=== PATIENT | male | born 1940 | race Caucasian/White ===

== ENCOUNTER 2021-05-14 10:18 | Inpatient (IN) ==
--- NOTE | 2021-05-13 09:00 | Anesthesiology Consultation ---
Date of Service May 13, 2021 Assessment & Plan (1) Encounter for pre-operative examination: - COVID screening: Per assessment on 05/13: No known COVID-19 positive contacts or current COVID-19 related symptoms. Travel screen negative. Surgeon arranging p reop COVID testing. Awaiting results. - Check BSG AM DOS - Cardiology office visit (05/09/21): "Please continue cardiac medications perioperatively. Given his history of CAD, would ideally recommend continuing aspirin perioperatievly, but will leave to your discretion. He does not appear to be on Plavix at this time, though he should have restarted that when he stopped Xarelto. Plavix should ideally be started after his surgery when deemed safe by his surgeon, ok to stay off of it until after he has his surgery." - Preop testing: No preop labs received. If not received prior, will order for AM DOS. Chart Review Chart Review: Acceptable Risk for Surgery (pending preop testing) and Patient NOT seen in Pre Admission Testing History Surgery Operation Date: 05/14/21 09:55 Proposed Procedures p L3-S1 Decompression Fusion Spinal Cord Monitoring - Beka Melgar, Height/Weight Height: 5 ft 8 in Weight: 63.503 kg Allergies Allergy/AdvReac Type Severity Reaction Status Date / Time Sulfa (Sulfonamide Allergy Intermediate Shakiness Verified 05/10/21 14:13 Antibiotics) Medications Home Medications Medication Instructions Recorded Confirmed Last Taken aspirin 81 mg tablet,delayed 81 mg PO QAM 05/10/21 05/10/21 Unknown release atorvastatin 40 mg tablet (Lipitor) 40 mg PO PM 05/10/21 05/10/21 Unknown empagliflozin 10 mg tablet 10 mg PO QAM 05/10/21 05/10/21 Unknown (Jardiance) ferrous sulfate 325 mg (65 mg 325 mg PO TID 05/10/21 05/10/21 Unknown iron) tablet (iron) hydrochlorothiazide 25 mg tablet 25 mg PO PM 05/10/21 05/10/21 Unknown insulin glargine 100 unit/mL (3 30 unit SUBCUT QAM 05/10/21 05/10/21 Unknown mL) subcutaneous pen (Lantus Solostar U-100 Insulin) levothyroxine 75 mcg tablet 75 mcg PO QAM 05/10/21 05/10/21 Unknown (Synthroid) lisinopril 40 mg tablet 40 mg PO QAM 05/10/21 05/10/21 Unknown lorazepam 1 mg tablet (Ativan) 1 mg PO QAM 05/10/21 05/10/21 Unknown melatonin 5 mg capsule 5 mg PO PM 05/10/21 05/10/21 Unknown metformin 500 mg tablet 250 mg PO PM 05/10/21 05/10/21 Unknown metformin 500 mg tablet 500 mg PO QAM 05/10/21 05/10/21 Unknown metoprolol succinate 25 mg 25 mg PO PM 05/10/21 05/10/21 Unknown tablet,extended release 24 hr (Toprol XL) tamsulosin 0.4 mg capsule (Flomax) 0.4 mg PO PM 05/10/21 05/10/21 Unknown Past Medical History Medical History Arthritis BPH (benign prostatic hyperplasia) CAD (coronary artery disease) CABG x2 (2008) Diabetes mellitus, type 2 Hyperlipidemia Hypertension Hypothyroidism Neuropathy feet Spinal stenosis Past Surgical History Surgical History History of cataract surgery bilat History of tooth extraction Hx of CABG 2019 > double bypass > [place] Hx of kyphoplasty L4 and L5 Hx of toe surgery bilat big toes Social History Smoking Status: Never smoker Do You Dip or Chew Tobacco: No Hx Alcohol Use: No Hx Substance Use: No substance use type: does not use Testing Electrocardiogram Date: 05/09/21 SB at 55bpm. First degree AVB. RBBB/LAFB. Recent echo 05/07/21. Echocardiogram Date: 05/07/21 EF 55%. Apical myocardium HK. No significant valvular disease. Stress Test Date: 05/13/18 Type: nuclear Myocardial perfusion imaging is abnormal. Reversible ischemia anterior segment left ventricule. Large area of scarring in the apical and inferior segments. EF 42%. Wall motion with apical and septal HK. Patient had subsequent cardiac cath and CABG x2. Cardiac Catheterization Date: 05/24/18 LAD mid 99%. Posterior descending artery proximal 80% Subsequent CABG x2.
[2021-05-14] MEDS: LACTATED RINGER'S 1,000 ML IV SCH ×2 (11:00→18:01)
[2021-05-14 11:06] LABS: Basophils # (auto) 0.02 K/uL (0-0.2); Basophils % (auto) 0.4 %; Eosinophils # (auto) 0.05 K/uL (0-0.5); Eosinophils % (auto) 0.9 %; Hemoglobin 12.2 g/dL (14.0-18.0); Lymphocytes # (auto) 0.95 K/uL (1.2-3.4); Lymphocytes % (auto) 16.7 %; Mean Corpuscular Hemoglobin 33.4 pg (25-34); Mean Corpuscular Hgb Conc 33.9 g/dL (32-36); Mean Corpuscular Volume 98.6 fL (80-100); Mean Platelet Volume 10.7 fL (7.4-10.4); Monocytes # (auto) 1.16 K/uL (0.11-0.59); Monocytes % (auto) 20.4 %; Neutrophils # (auto) 3.52 K/uL (1.4-6.5); Neutrophils % (auto) 61.6 %; Platelet Count 167 K/uL (130-400); Red Blood Count 3.65 M/uL (4.7-6.1)
[2021-05-14] MEDS ORDERED: ROCURONIUM BROMIDE 10 MG/ML 5 ML VIAL IV ONE (11:10)
[2021-05-14] MEDS ORDERED: fentaNYL citrate 100 MCG/2 ML VIAL ONE ×2 (11:10→16:49)
[2021-05-14] MEDS ORDERED: ONDANSETRON INJ 2 MG/ML 2 ML VIAL ONE ×2 (11:10→14:48)
[2021-05-14] MEDS ORDERED: DEXAMETHASONE SOD INJ 4 MG/ML VIAL ONE (11:10)
[2021-05-14] MEDS ORDERED: PROPOFOL IV EMULSION 10 MG/ML 20 ML VIAL IV ONE (11:10)
[2021-05-14 11:25] LABS: BUN Creatinine Ratio 26.6 (10-20); Calcium 9.6 mg/dl (8.5-10.1); Creatinine Clr Calc Pharmacy 32.5 ml/min; Est GFR (African American) 46.8 ml/min; Est GFR (Non-African American) 40.4 ml/min; Potassium 3.8 mmol/L (3.5-5.1)
[2021-05-14] MEDS ORDERED: ONDANSETRON INJ 2 MG/ML 2 ML VIAL IV PRN ×2 (12:17→17:54)
[2021-05-14] MEDS ORDERED: ePHEDrine sulfate 50 MG/ML AMP IV PRN (12:17)
[2021-05-14] MEDS ORDERED: fentaNYL citrate 100 MCG/2 ML VIAL IV PRN (12:17)
[2021-05-14] MEDS ORDERED: HYDROmorphone INJ 1 MG/ML SYRINGE IV PRN ×2 (12:17→17:54)
[2021-05-14] MEDS ORDERED: ATROPINE SULFATE 0.1 MG/ML 10ML SYR IV PRN (12:17)
--- NOTE | 2021-05-14 13:53 | History & Physical Bridge Note ---
Date of Service May 14, 2021 History & Physical Bridge Note I have examined the patient, reviewed the History & Physical and in the interval since the performance of the History & Physical I have noted the following changes of clinical significance: no changes noted
--- NOTE | 2021-05-14 13:54 | History & Physical Report ---
Date of Service May 14, 2021 Assessment & Plan (1) Neurogenic claudication due to lumbar spinal stenosis: Plan: L3-S1 decompression fusion History of Present Illness Chief Complaint: Back and bilateral leg pain Primary Care Provider: NO PCP This is a 50-year-old male who presents with chronic persistent back and leg pain. Failing course of nonoperative care is here for surgical invention. Allergies Allergy/AdvReac Type Severity Reaction Status Date / Time Sulfa (Sulfonamide Allergy Intermediate Shakiness Verified 05/14/21 10:57 Antibiotics) Home Medications Medication Instructions Recorded Confirmed Type aspirin 81 mg tablet,delayed 81 mg PO QAM 05/10/21 05/14/21 History release atorvastatin 40 mg tablet (Lipitor) 40 mg PO PM 05/10/21 05/14/21 History empagliflozin 10 mg tablet 10 mg PO QAM 05/10/21 05/14/21 History (Jardiance) ferrous sulfate 325 mg (65 mg 325 mg PO TID 05/10/21 05/14/21 History iron) tablet (iron) hydrochlorothiazide 25 mg tablet 25 mg PO PM 05/10/21 05/14/21 History insulin glargine 100 unit/mL (3 30 unit SUBCUT QAM 05/10/21 05/14/21 History mL) subcutaneous pen (Lantus Solostar U-100 Insulin) levothyroxine 75 mcg tablet 75 mcg PO QAM 05/10/21 05/14/21 History (Synthroid) lisinopril 40 mg tablet 40 mg PO QAM 05/10/21 05/14/21 History lorazepam 1 mg tablet (Ativan) 1 mg PO QAM 05/10/21 05/14/21 History melatonin 5 mg capsule 5 mg PO PM 05/10/21 05/14/21 History metformin 500 mg tablet 250 mg PO PM 05/10/21 05/14/21 History metformin 500 mg tablet 500 mg PO QAM 05/10/21 05/14/21 History metoprolol succinate 25 mg 25 mg PO PM 05/10/21 05/14/21 History tablet,extended release 24 hr (Toprol XL) tamsulosin 0.4 mg capsule (Flomax) 0.4 mg PO PM 05/10/21 05/14/21 History Past Med/Surg History Medical History Arthritis BPH (benign prostatic hyperplasia) CAD (coronary artery disease) CABG x2 (2009) Diabetes mellitus, type 2 Hyperlipidemia Hypertension Hypothyroidism Neuropathy feet Spinal stenosis Surgical History History of cataract surgery bilat History of tooth extraction Hx of CABG 2019 > double bypass > [place] Hx of kyphoplasty L4 and L5 Hx of toe surgery bilat big toes Social History Smoking Status: Never smoker Second Hand Exposure: No; Do You Dip or Chew Tobacco: No; Tobacco Cessation Education Requested by Patient: No Hx Alcohol Use: No Hx Substance Use: No Preferred Language: Syriac Communication Ability: Effective Ammunition Officer Required: No Beliefs That Will Affect Care: None Current Living Situation: Alone Other Information That Helps Us Care for You: No Feels Safe at Home: Yes Safety Concerns: Feels Safe At This Time Assistive Devices: Denture - Upper, Denture - Lower, Glasses, Hearing Aid - Bilateral and Walker Physical Exam Physical Exam: Patient is alert and oriented Heart regular rhythm Lungs clear Results & Data ([facility]) Vital Signs (Past 12 Hours) Vital Signs Temp Pulse Resp BP Pulse Ox 05/14/21 10:49 36.7 C 60 18 168/75 H 98
[2021-05-14] MEDS ORDERED: SUGAMMADEX SODIUM 200 MG/2 ML VIAL IV ONE (13:56)
[2021-05-14] MEDS ORDERED: BUPIVACAINE 0.5 % 5 MG/1 ML MPF 30ML VIAL ONE (13:59)
[2021-05-14] MEDS ORDERED: EPINEPHrine INJ 1 MG/ML AMP ONE (13:59)
[2021-05-14] MEDS ORDERED: ceFAZolin 330 MG/ML 1 GM VIAL ONE (13:59)
[2021-05-14] MEDS ORDERED: ceFAZolin 2,000 MG/15 ML IV PUSH IV ONE (14:04)
[2021-05-14] MEDS ORDERED: ceFAZolin 2000MG 2,000 MG/15 ML SYR IV ONE (14:05)
[2021-05-14] MEDS ORDERED: PHENYLEPHRINE HCL 10 MG/ML VIAL ONE (14:37)
[2021-05-14] MEDS ORDERED: ePHEDrine sulfate 50 MG/ML AMP ONE (14:37)
[2021-05-14] MEDS ORDERED: FLOSEAL HEMOSTATIC MATRIX 10ML TOP ONE (14:54)
--- NOTE | 2021-05-14 16:57 | Operative Report ---
Post Operative Report Pre & Post Diagnosis Operation Date: 05/14/21 12:50 Pre-Op Diagnosis: Spinal Stenosis of Lumbar Region Post-Op Diagnosis: Spinal Stenosis of Lumbar Region I identified the patient and participated in the time-out.: Yes Procedure Operation Date: 05/14/21 12:50 Actual Procedures #1 lumbar decompression with bilateral medial facetectomies and foraminotomies L3-L4, L4-5 and L5-S1. #2 posterior spinal fusion L3-S1. #3 placement posterior instrumentation L3-S1. #4 interbody fusion L5-S1. #5 placement of Spira 14 x 26 mm cage at L5-S1. #6 placement locally harvested morselized autograft in the posterior gutters. #7 placement of infuse collagen sponge, master graft in the posterior lateral gutters and I factor in the body space. Surgeon Beka Melgar, Client Development Consultant None Estimated Blood Loss 200 Findings Consistent with Post-Op Diagnosis Specimens None Indications This is an 80-year-old male who presents with significant lumbar spinal stenosis and neurogenic claudication after failing course of nonoperative care is here for surgical intervention. Description of Procedure Patient was met with identified informed consent obtained. Patient was then taken to the operative suite underwent ablation placed in a prone position the Ramírez table atop the Pedro frame. All bony prominences well-padded eyes inspected to ensure no external pressure placed upon. This point the lumbar spine was prepped and draped in a sterile fashion. Sharp dissection with the assistance pericardial form down to and exposing the lamina and transverse processes of L3-L4-L5 and sacral ala bilaterally. From caudal to cephalad fashion complete laminectomy of L5 L4 and L3 was performed including bilateral medial facetectomies and foraminotomies addressing severe spinal stenosis. Pedicle screws then placed in L3 L5 and S1 levels bilaterally with assistance of fluoroscopy purposes javier placed. By way of a transforaminal portion right complete discectomy of L5-S1 was performed endplates curetted to subcortical bone bone and a 14 x 26 mm Spira cage filled with I factor tapped in position. Rods were then compressed locked in final position bilaterally. The transverse processes of L3-L4-L5 and sacral ala burred to subcortical being bone. Infuse collagen sponge master graft local autograft was placed in the posterior gutters. 15 round ELISABET drain inserted. The incision was then closed with 1 Vicryl fascia 2-0 Vicryl subcutaneously and 4 Monocryl for final skin closure. Steri-Strip Steri-Strips placed. Patient will continue PACU stable condition. Please note spinal cord monitoring was last at the procedure no changes noted. I attest to the content of the Intraoperative Record and any orders documented therein. Any exceptions are noted below.
--- NOTE | 2021-05-14 17:11 | Fluoroscopy Report ---
FL lumbar spine 2-3V CLINICAL HISTORY: L3-S1 DECOMPRESSION AN FUSION TECHNIQUE: 3 views were obtained with the C-arm in the OR with the above procedure. Total fluoroscopy time was 3.3 seconds. Total skin dose was 8.44 mGy. Comparison: None available at the time of this dictation. FINDINGS/IMPRESSION: Intraoperative images were obtained of L3-S1 decompression and fusion. Please correlate with intraoperative fluoroscopy and operative report. ACT 112: Negative or not required by law. Electronically signed by: Aguilar Cotton M.D. 05/14/2021 5:09 PM
--- NOTE | 2021-05-14 17:53 | Anesthesiology Progress Note ---
Date of Service May 14, 2021 Anesthesia Post Procedure Vital Signs Vital Signs: Temp Pulse Pulse Resp BP Pulse Ox 05/14/21 17:40 36.3 C L 63 12 128/56 L 98 05/14/21 17:30 36.3 C L 69 16 118/67 97 05/14/21 17:20 69 12 121/63 98 05/14/21 17:10 77 19 101/55 L 97 05/14/21 17:03 36 C L 75 4 L 121/64 100 05/14/21 10:49 36.7 C 60 18 168/75 H 98 Transfer of Care Handoff Completed per policy Notes Mental Status: alert / awake / arousable and participated in evaluation Patient Amnestic to Procedure: Yes Nausea / Vomiting: adequately controlled Pain: adequately controlled Airway Patency, RR, SpO2: stable & adequate BP & HR: stable & adequate Hydration State: stable & adequate Anesthetic Complications: no major complications apparent
[2021-05-14] MEDS ORDERED: LORazepam 0.5 MG TAB PO PRN (17:54)
[2021-05-14] MEDS ORDERED: hydrOXYzine HCl 25 MG TAB PO PRN (17:54)
[2021-05-14] MEDS ORDERED: DO NOT ADMINISTER PNEUMOCOCCAL VACCINE PRN (17:54)
[2021-05-14] MEDS ORDERED: traMADol HCL 50 MG TABLET PO PRN (17:54)
[2021-05-14] MEDS ORDERED: ACETAMINOPHEN 1,000 MG/100 ML VIAL IV PRN (17:54)
[2021-05-14] MEDS ORDERED: ACETAMINOPHEN 500 MG TAB PO PRN (17:54)
[2021-05-14] MEDS ORDERED: diphenhydrAMINE Capsule 25 MG CAP PO PRN (17:54)
[2021-05-14] MEDS ORDERED: FAMOTIDINE 20 MG TAB PO PRN (17:54)
[2021-05-14] MEDS ORDERED: oxyCODONE HCL IR 5 MG TAB (IMMEDIATE RELEASE) PO PRN (17:54)
[2021-05-14] MEDS ORDERED: PROMETHAZINE HCL 12.5 MG in SODIUM CHLORIDE 0.9% 50 ML IV PRN (17:54)
[2021-05-14] MEDS ORDERED: METOCLOPRAMIDE HCL INJ 5 MG/ML 2 ML VIAL IV PRN (17:54)
[2021-05-14] MEDS ORDERED: LORazepam 2 MG/1 ML VIAL IV PRN (17:54)
[2021-05-14] MEDS ORDERED: ONDANSETRON 4 MG OD TAB PO PRN (17:54)
[2021-05-14] MEDS ORDERED: NALOXONE HCL 0.4 MG/1 ML VIAL/CARP IV PRN (17:54)
[2021-05-14] MEDS ORDERED: HYDROmorphone INJ 0.5 MG/0.5 ML SYR IV PRN (17:54)
[2021-05-14] MEDS ORDERED: bisacodyL 10 MG SUPP PR PRN (17:54)
[2021-05-14] MEDS ORDERED: SOD PHOSPHATE/SOD BIPHOSPHATE ENEMA 132 ML BTL PR PRN (17:54)
[2021-05-14] MEDS ORDERED: DO NOT ADMINISTER FLU VACCINE PRN (17:54)
[2021-05-14] MEDS ORDERED: ALUMINUM/MAGNESIUM SUSP 30 ML UDC PO PRN (17:54)
[2021-05-14] MEDS ORDERED: MAGNESIUM HYDROXIDE SUSP 30 ML UDC PO PRN (17:54)
[2021-05-14] MEDS: SODIUM CHLORIDE 0.9% 1000ML 1,000 ML IV SCH (18:05)
[2021-05-14] MEDS ORDERED: PHARMACY GLYCEMIC MGMT CONSULT PRN (20:18)
[2021-05-14] MEDS ORDERED: CARBOHYDRATES FOR HYPOGLYCEMIA PO PRN (20:45)
[2021-05-14] MEDS ORDERED: GLUCOSE 10 TABS/TUBE PO PRN (20:45)
[2021-05-14] MEDS ORDERED: GLUCOSE 40% GEL 15 GM TUBE PO PRN (20:45)
[2021-05-14] MEDS ORDERED: DEXTROSE 50% 50 ML SYRINGE IV PRN (20:45)
[2021-05-14] MEDS ORDERED: GLUCAGON FOR INJ 1 MG VIAL IM PRN (20:45)
[2021-05-14] MEDS ORDERED: hydroCHLOROthiazide 25 MG TAB PO SCH (21:00)
--- NOTE | 2021-05-14 21:13 | Hospitalist Consultation ---
Date of Consultation May 14, 2021 Assessment & Plan (1) Neurogenic claudication due to lumbar spinal stenosis: POD#0 L3-S1 decompression and fusion by Dr. Melgar Activity and wound care orders as per ortho pain control with bowel regimen PT/OT monitor H/H for acute blood loss anemia and transfuse blood products PRN EBL 200 cc (2) Abnormal renal function: Creatinine 1.5 Unknown baseline, however patient reports that his PCP wants him to see a autocutter For now, hold HCTZ and lisinopril pending a.m. labs Daily BMP (3) CAD (coronary artery disease): Appears stable, no reports of chest pain Continue ASA, statin, beta-sandip (4) Diabetes mellitus, type 2: Unknown A1c, will check with a.m. labs Glycemic pharmacy consult (5) Hypertension: BP controlled, holding lisinopril and HCTZ as above Continue metoprolol (6) Ischemic cardiomyopathy: Previous EF 40% however normalized on recent echo on 05/07/2021 to 55% Monitor volume status closely (7) Hypothyroidism: Continue levothyroxine (8) DVT prophylaxis: TEDs/SCDs as per spine Ortho Thank you for this consultation. We will follow the patient with you during their hospital stay. You can reach a member of the [facility] Hospitalist Team 01/09 via the [facility] Hospitalist role in [place] Text. Supervising Physician Co-Signing Physician Notes Care coordinated with CLAUDIA Salmon. Agree with above note. Patient seen and examined. Please refer to her notes for full details. Vital signs reviewed. Physical exam: General exam: Alert and oriented. Not in acute distress. CVS: S1 and S2 heard, regular rate and rhythm, no murmurs. RS: Clear to auscultation, no wheezing or crackles. ABD: Soft, bowel sounds present, nontender, no distention. SPORTS TRAINER: Nonfocal. Musculoskeltal s/p back surgery Dressing and drain intact. EXT: No edema, no erythema. Labs: Reviewed. Assessment and plan: 80 M with hx of CAd, HTN, DM is s/p back surgery. Tolerated procedure fine. NO complaints. Resting comfortably, s/p Back surgery management as per ortho. DM will monitor pharmacy consulted. Hx of HTN will monitor Other diagnosis and plan of care as per .CLAUDIA Salmon. Ronaldo davis MD. History of Present Illness Reason for Consultation: Postop medical management Requesting Physician: Dr. Melgar Attending Physician: Beak Melgar, DO History of Present Illness 80-year-old male with PMH CAD s/p CABG, ischemic cardiomyopathy EF 55%, DM type II, hypothyroidism, HTN, and other problems listed below who is s/p L3-S1 decompression and fusion by Dr. Melgar. Postoperatively, the patient is doing well. He reports his pain is well controlled. He reports chronic tingling to his feet that is unchanged from baseline due to neuropathy. Denies lower extremity weakness. No chest pain or shortness of breath. Denies lightheadedness and dizziness. No abdominal pain or nausea. Molina catheter is in place draining clear yellow urine. Allergies Allergy/AdvReac Type Severity Reaction Status Date / Time Sulfa (Sulfonamide Allergy Intermediate Shakiness Verified 05/14/21 10:57 Antibiotics) Home Medications Medication Instructions Recorded Confirmed Type aspirin 81 mg tablet,delayed 81 mg PO QAM 05/10/21 05/14/21 History release atorvastatin 40 mg tablet (Lipitor) 40 mg PO PM 05/10/21 05/14/21 History empagliflozin 10 mg tablet 10 mg PO QAM 05/10/21 05/14/21 History (Jardiance) ferrous sulfate 325 mg (65 mg 325 mg PO TID 05/10/21 05/14/21 History iron) tablet (iron) hydrochlorothiazide 25 mg tablet 25 mg PO PM 05/10/21 05/14/21 History insulin glargine 100 unit/mL (3 30 unit SUBCUT QA 05/10/21 05/14/21 History mL) subcutaneous pen (Lantus Solostar U-100 Insulin) levothyroxine 75 mcg tablet 75 mcg PO QAM 05/10/21 05/14/21 History (Synthroid) lisinopril 40 mg tablet 40 mg PO QAM 05/10/21 05/14/21 History lorazepam 1 mg tablet (Ativan) 1 mg PO QAM 05/10/21 05/14/21 History melatonin 5 mg capsule 5 mg PO PM 05/10/21 05/14/21 History metformin 500 mg tablet 250 mg PO PM 05/10/21 05/14/21 History metformin 500 mg tablet 500 mg PO QAM 05/10/21 05/14/21 History metoprolol succinate 25 mg 25 mg PO PM 05/10/21 05/14/21 History tablet,extended release 24 hr (Toprol XL) tamsulosin 0.4 mg capsule (Flomax) 0.4 mg PO PM 05/10/21 05/14/21 History Patient History Medical History Arthritis BPH (benign prostatic hyperplasia) CAD (coronary artery disease) CABG x2 (2009) Diabetes mellitus, type 2 Hyperlipidemia Hypertension Hypothyroidism Ischemic cardiomyopathy Neuropathy feet Spinal stenosis Surgical History History of cataract surgery bilat History of tooth extraction Hx of CABG 2019 > double bypass > [place] Hx of kyphoplasty L4 and L5 Hx of toe surgery bilat big toes Family History Other Family history non-contributory Social History Smoking Status: Never smoker Second Hand Exposure: No; Do You Dip or Chew Tobacco: No; Tobacco Cessation Education Requested by Patient: No Hx Alcohol Use: No Hx Substance Use: No Preferred Language: Moldovan Communication Ability: Effective Architectural Manager Required: No Beliefs That Will Affect Care: None Current Living Situation: Alone Other Information That Helps Us Care for You: No Feels Safe at Home: Yes Safety Concerns: Feels Safe At This Time Assistive Devices: Denture - Upper, Denture - Lower, Glasses, Hearing Aid - Bilateral and Walker Review of Systems Review of Systems: ROS per HPI, all other systems reviewed and negative Physical Exam Constitutional: WD/WN, vitals as above Eyes: PERRL, conjunctivae normal, anicteric sclerae ENMT: external ear and nose normal, oropharynx normal Respiratory: normal respiratory effort, lungs clear to auscultation Cardiovascular: Rate/Rhythm: regular rate and regular rhythm Heart Sounds: + murmur (Grade 3/6, systolic) Extremities: no edema Gastrointestinal (Abdomen): normal bowel sounds, soft, nontender, no hepatosplenomegaly Musculoskeletal: no cyanosis or clubbing, extremities motor strength 5/5 S/p back surgery, pedal pushes and pulls strong bilaterally, drain in place draining bloody drainage Skin: no rashes, warm and dry Neurologic: PERRL, EOMI, accommodation nl, no face palsy, no dysarthria Psychiatric: A+Ox3, euthymic affect Results & Data Results & Data ([facility]) Vital Signs (Past 12 Hours) Vital Signs Temp Pulse Pulse Pulse Resp BP Pulse Ox 05/14/21 20:50 36.7 C 73 16 142/65 H 96 05/14/21 19:50 36.3 C L 69 18 132/64 97 05/14/21 18:50 36.3 C L 75 16 132/68 93 05/14/21 18:20 36.4 C L 65 16 133/59 L 97 05/14/21 17:50 36.4 C L 68 16 122/60 97 05/14/21 17:40 36.3 C L 63 12 128/56 L 98 05/14/21 17:30 36.3 C L 69 16 118/67 97 05/14/21 17:20 69 12 121/63 98 05/14/21 17:10 77 19 101/55 L 97 05/14/21 17:03 36 C L 75 4 L 121/64 100 05/14/21 10:49 36.7 C 60 18 168/75 H 98 Laboratory Results Short CBC 05/14/21 Range/Units 10:43 WBC 5.70 (4.8-10.8) K/uL Hgb 12.2 L (14.0-18.0) g/dL Hct 36.0 L (42-52) % Plt Count 167 (130-400) K/uL BMP 05/14/21 10:43 Sodium 141 Potassium 3.8 Chloride 105 Carbon Dioxide 28 BUN 42 H Creatinine 1.58 H Glucose 126 H Calcium 9.6
[2021-05-14] MEDS: MELATONIN 3 MG TAB PO SCH (21:27)
[2021-05-14] MEDS: ATORVASTATIN 40 MG TAB PO SCH (21:27)
[2021-05-14] MEDS: TAMSULOSIN HCL 0.4 MG CAP PO SCH (21:27)
[2021-05-14] MEDS: DOCUSATE SODIUM/SENNA 50/8.6MG TAB PO SCH (21:28)
[2021-05-14] MEDS: METOPROLOL SUCC 25MG EXT REL TAB PO SCH (21:28)
[2021-05-14] MEDS: FERROUS SULFATE 325 MG TAB PO SCH (21:28)
[2021-05-14] MEDS: INSULIN ASPART PER UNIT SC SCH (21:29)
[2021-05-14] MEDS ORDERED: INSULIN GLARGINE SOLOSTAR 100 UNITS/ML 3 ML PEN SC ONE (21:45)
[2021-05-14] MEDS: ceFAZolin 1000MG 1,000 MG/7.5 ML SYR IV SCH (22:28)
[2021-05-15] MEDS: SODIUM CHLORIDE 0.9% 1000ML 1,000 ML IV SCH (03:50)
[2021-05-15] MEDS: LEVOTHYROXINE SODIUM 75 MCG TABLET PO SCH (06:10)
[2021-05-15] MEDS: POLYETHYLENE (MIRALAX) 17 GM PACK PO SCH ×3 (06:11→17:39)
[2021-05-15] MEDS: ceFAZolin 1000MG 1,000 MG/7.5 ML SYR IV SCH (06:12)
[2021-05-15] MEDS ORDERED: Nursing to Pharmacy Communication SCH (06:45)
[2021-05-15 08:15] LABS: Hematocrit (blood only) 25.8 % (42-52); Hemoglobin 8.7 g/dL (14.0-18.0); Mean Corpuscular Hemoglobin 32.8 pg (25-34); Mean Corpuscular Hgb Conc 33.7 g/dL (32-36); Mean Corpuscular Volume 97.4 fL (80-100); Mean Platelet Volume 10.9 fL (7.4-10.4); Platelet Count 173 K/uL (130-400); RDW Standard Deviation 50.2 fL (36.4-46.3); Red Blood Count 2.65 M/uL (4.7-6.1); White Blood Count 10.46 K/uL (4.8-10.8)
[2021-05-15] MEDS: INSULIN ASPART PER UNIT SC SCH ×4 (08:24→21:09)
[2021-05-15] MEDS: ASPIRIN 81 MG ECTAB PO SCH (08:26)
[2021-05-15] MEDS: dexAMETHasone 6 MG in SYRINGE 0 ML IV SCH (08:26)
[2021-05-15] MEDS: INSULIN GLARGINE SOLOSTAR 100 UNITS/ML 3 ML PEN SC SCH (08:27)
[2021-05-15] MEDS: FERROUS SULFATE 325 MG TAB PO SCH ×3 (08:27→21:00)
[2021-05-15 08:40] LABS: Immature Granulocytes # (auto) 0.03 K/uL (0.00-0.02); Immature Granulocytes % (auto) 0.3 %; Lymphocytes # (auto) 0.99 K/uL (1.2-3.4); Lymphocytes % (auto) 9.5 %; Monocytes # (auto) 1.84 K/uL (0.11-0.59); Monocytes % (auto) 17.6 %; Neutrophils % (auto) 72.6 %
[2021-05-15 08:47] LABS: Calcium 8.4 mg/dl (8.5-10.1); Creatinine Clr Calc Pharmacy 25.6 ml/min; Est GFR (African American) 35.2 ml/min; Est GFR (Non-African American) 30.4 ml/min; Potassium 5.4 mmol/L (3.5-5.1)
[2021-05-15] MEDS ORDERED: lisinopril 40 MG TAB PO SCH (09:00)
[2021-05-15 09:34] LABS: Estimated Average Glucose 163 mg/dl; Hemoglobin A1C 7.3 % (4.5-5.6)
--- NOTE | 2021-05-15 13:49 | Orthopedic Progress Note ---
Date of Service May 15, 2021 Assessment & Plan (1) Neurogenic claudication due to lumbar spinal stenosis: Plan: This time continue physical therapy monitor his ELISABET operatively discharge home next few days. Admission and Anticipated Discharge Date Admission Date: May 14, 2021 Subjective Back pain is controlled leg symptoms markedly improved Physical Exam Physical Exam: Patient is in the chair at the bedside. Is comfortable. Is good strength testing. Results & Data ([facility]) Vital Signs (Past 12 Hours) Vital Signs Temp Pulse Resp BP BP Pulse Ox 05/15/21 11:47 36.6 C 63 16 118/63 96 05/15/21 07:43 36.7 C 85 16 102/65 93 05/15/21 03:00 36.6 C 72 16 116/60 95
--- NOTE | 2021-05-15 13:55 | Pharmacy Report ---
Pharmacy Glycemic Short Note 2 - Date of Service May 15, 2021 - Glycemic Short BSG Results (Last 24 hours): 05/14/21 05/14/21 05/15/21 17:04 20:53 07:31 Glucose 257 H POC Glucose 129 H 217 H 05/15/21 05/15/21 08:17 11:56 Glucose POC Glucose 290 H 214 H OUTPATIENT ANTIDIABETIC REGIMEN: * Empagliflozin 10mg daily * Metformin: 500mg qAM, 250mg qPM * Lantus 30 units SQ qAM * HbA1c: 7.3% (05/15/21) ASSESSMENT: * Mr Albarado is an 80yo diabetic male, POD #1 s/p spinal surgery w/ Dr Melgar yesterday. * It appears as though pt received 12mg IV dexamethasone yesterday pre- operatively. This is expected to contribute to significant steroid-induced hyperglycemia. Pt is ordered DXM 6mg IV daily x3 days. * Patient has been hyperglycemic post-op. Suspect that this is due to steroids and also due to a basal insulin deficit. * Pt's SCr increased today (1.58 --> 2.0), so will cautiously attempt to correct hyperglycemia in the setting of changing insulin sensitivity. PLAN FOR INPATIENT GLYCEMIC CONTROL: * Hold outpatient oral diabetes medications * Basal insulin * Lantus 30 units SQ daily * Bolus insulin * NovoLog per scale ACHS or Q6hrs while NPO, plus 0000 and 0400 tonight * Goal Range: Low 110 mg/dL - High 140 mg/dL * Correction Factor: 25 mg/dL/unit * Nutritional / Prandial insulin per carb ratio of 1 unit per 8 grams CHO consumed
--- NOTE | 2021-05-15 14:08 | Hospitalist Progress Note ---
Date of Service May 15, 2021 Assessment & Plan (1) Neurogenic claudication due to lumbar spinal stenosis: (2) Abnormal renal function: (3) CAD (coronary artery disease): (4) Diabetes mellitus, type 2: (5) Hypertension: (6) Ischemic cardiomyopathy: (7) Hypothyroidism: (8) DVT prophylaxis: Plan: Neurogenic Claudication -Management per Orthopedic service GEORGE on likely CKD -unknown CKD stage -Cr 1.5 on admission, 2 today despite holding home lisinopril and HCTZ -will repeat BMP now, check post void bladder scan Q shift -still with rojas after surgery so post renal obstruction unlikely -will place on NSS at 75 cc/hr, repeat BMP tomorrow Acute blood loss anemia -Hb 12--> 8.7 -repeat Hb 8.4. May need blood transfusion tomorrow if Hb drops further Ischemic Cardiomyopathy Chronic systolic CHF -EF 40%--> recovered to 55% on repeat TTE 05/07/2021 -Hypovolemic on exam HTN -hold home HCTZ, lisinopril -BP normotensive off medications BPH -flomax -void trial now. would recommend post void bladder scan Q shift Hyperkalemia -in setting of hyperglycemia and worsening renal failure -will repeat BMP again now, if remains elevated, will give 1 dose kayexlate IDDM with steroid induced hyperglycemia -management per glycemic pharmacist DVT PPx -per primary, but recommend SCDs in setting of acute blood loss anemia. Admission and Anticipated Discharge Date Admission Date: May 14, 2021 Subjective Reports poor sleep Poor oral intake Still with drain in back Denies light headedness, dizziness, chest pain or shortness of breath Physical Exam Physical Exam: Appears stated age, no acute distress but somewhat pale ENMT: Mucous membrane dry Respiratory: Breathing comfortably on room air, no wheezing/rhonchi/rales Cardiovascular: regular rate and rhythm, no murmurs/rubs/gallops Gastrointestinal (Abdomen): soft Musculoskeletal: thin Skin: back drain with serosanguinous fluid, dressing at surgical site is clean/dry/intact Results & Data Results & Data ([facility]) Vital Signs (Past 12 Hours) Vital Signs Temp Pulse Resp BP BP Pulse Ox 05/15/21 11:47 36.6 C 63 16 118/63 96 05/15/21 07:43 36.7 C 85 16 102/65 93 05/15/21 03:00 36.6 C 72 16 116/60 95 Laboratory Results Short CBC 05/15/21 05/15/21 Range/Units 07:31 14:13 WBC 10.46 12.52 H (4.8-10.8) K/uL Hgb 8.7 L D 8.4 L (14.0-18.0) g/dL Hct 25.8 L 24.6 L (42-52) % Plt Count 173 149 (130-400) K/uL BMP 05/15/21 07:31 Sodium 133 L Potassium 5.4 H D Chloride 101 Carbon Dioxide 24 BUN 54 H Creatinine 2.00 H D Glucose 257 H Calcium 8.4 L Medications Administered Current Inpatient Medications Acetaminophen (Acetaminophen 500 Mg Tab) 1,000 mg PO Q8H PRN PRN Reason: MILD Pain Scale 1,2,3 & Pre PT Stop: 06/13/21 17:53 Last Admin: 05/15/21 06:20 Dose: 1,000 mg Documented by: Al Hydrox/Mg Hydrox/Simethicone (Aluminum/Magnesium Susp 30 Ml Udc) 30 ml PO Q6H PRN PRN Reason: Dyspepsia Stop: 06/13/21 17:53 Last Admin: 05/15/21 06:20 Dose: 30 ml Documented by: Aspirin (Aspirin 81 Mg Ectab) 81 mg PO QAM ANTHONY Stop: 06/14/21 08:59 Last Admin: 05/15/21 08:26 Dose: 81 mg Documented by: Atorvastatin Calcium (Atorvastatin 40 Mg Tab) 40 mg PO PM ANTHONY Stop: 06/13/21 20:59 Last Admin: 05/14/21 21:27 Dose: 40 mg Documented by: Bisacodyl (Bisacodyl 10 Mg Supp) 10 mg LA DAILY PRN PRN Reason: Constipation Stop: 06/13/21 17:53 Dextrose (Dextrose 50% 50 Ml Syringe) 25 - 50 ml IV UD PRN; Protocol PRN Reason: Hypoglycemia Protocol Stop: 06/13/21 20:44 Diphenhydramine HCl (Diphenhydramine Capsule 25 Mg Cap) 25 mg PO Q6H PRN PRN Reason: Allergic Rhinitis/Insomnia Stop: 06/13/21 17:53 Famotidine (Famotidine 20 Mg Tab) 20 mg PO Q12H PRN PRN Reason: Dyspepsia Stop: 06/13/21 17:53 Ferrous Sulfate (Ferrous Sulfate 325 Mg Tab) 325 mg PO TID ANTHONY Stop: 06/13/21 20:59 Last Admin: 05/15/21 14:48 Dose: 325 mg Documented by: Glucagon (Glucagon For Inj 1 Mg Vial) 1 mg IM UD PRN; Protocol PRN Reason: Hypoglycemia Protocol Stop: 06/13/21 20:44 Glucose (Glucose 40% Gel 15 Gm Tube) 15 - 30 gm PO UD PRN; Protocol PRN Reason: Hypoglycemia Protocol Stop: 06/13/21 20:44 Glucose (Glucose 10 Tabs/Tube) 4 - 8 tabs PO UD PRN; Protocol PRN Reason: Hypoglycemia Protocol Stop: 06/13/21 20:44 Hydrochlorothiazide (Hydrochlorothiazide 25 Mg Tab) 25 mg PO PM [facility] Stop: 06/13/21 20:59 Hydromorphone HCl (Hydromorphone Inj 0.5 Mg/0.5 Ml Syr) 0.5 mg IV Q3H PRN PRN Reason: MODERATE Pain (Scale 4,5,6) & Pre PT Stop: 05/28/21 17:53 Hydromorphone HCl (Hydromorphone Inj 1 Mg/Ml Syringe) 1 mg IV Q3H PRN PRN Reason: SEVERE Pain (Scale 7,8,9,10) Stop: 05/28/21 17:53 Hydroxyzine HCl (Hydroxyzine Hcl 25 Mg Tab) 25 mg PO Q8H PRN PRN Reason: Anxiety Stop: 06/13/21 17:53 Promethazine HCl 12.5 mg/ (Sodium Chloride) 50.5 mls @ 202 mls/hr IV Q6H PRN PRN Reason: Nausea &/or Vomiting Stop: 06/13/21 17:53 Acetaminophen (Ofirmev) 1,000 mg in 100 mls @ 400 mls/hr IV Q8H PRN PRN Reason: Pain Rating 1-3 & Pre PT Stop: 05/17/21 17:53 Dexamethasone 6 mg/ Syringe 1.5 mls @ 1 mls/min IV DAILY [facility] Stop: 05/17/21 09:02 Last Admin: 05/15/21 08:26 Dose: 1 mls/min Documented by: Influenza Virus Vaccine Quadrival (Do Not Administer Flu Vaccine) 1 ea N/A PRN PRN PRN Reason: Notification Stop: 06/13/21 17:53 Insulin Aspart (Insulin Aspart Per Unit) 0 units SC ACHS [facility] Stop: 06/13/21 20:59 Last Admin: 05/15/21 12:35 Dose: 7 units Documented by: Insulin Aspart (Insulin Aspart Per Unit) 0 units SC 0000,[id number] [facility] Stop: 05/16/21 04:01 Insulin Glargine (Insulin Glargine Solostar 100 Units/Ml 3 Ml Pen) 30 units SC [facility] Stop: 06/14/21 08:59 Last Admin: 05/15/21 08:27 Dose: 30 units Documented by: Levothyroxine Sodium (Levothyroxine Sodium 75 Mcg Tablet) 75 mcg PO DAILYBB [facility] Stop: 06/14/21 06:29 Last Admin: 05/15/21 06:10 Dose: 75 mcg Documented by: Lisinopril (L[facility]op[facility] 40 Mg Tab) [facility] Stop: 06/14/21 08:59 Lorazepam (Lorazepam 0.5 Mg Tab) 0.5 mg PO Q8H PRN PRN Reason: Sedation/Anxiety Stop: 06/13/21 17:53 Lorazepam (Lorazepam 2 Mg/1 Ml Vial) 0.5 mg IV Q8H PRN PRN Reason: Sedation/Anxiety Stop: 06/13/21 17:53 Magnesium Hydroxide (Magnesium Hydroxide Susp 30 Ml Udc) 30 ml PO Q24H PRN PRN Reason: Constipation Stop: 06/13/21 17:53 Melatonin (Melatonin 3 Mg Tab) 4.5 mg PO PM [facility] Stop: 06/13/21 20:59 Last Admin: 05/14/21 21:27 Dose: 4.5 mg Documented by: Metoclopramide HCl (Metoclopramide Hcl Inj 5 Mg/Ml 2 Ml Vial) 10 mg IV Q6H PRN PRN Reason: Nausea &/or Vomiting Stop: 06/13/21 17:53 Metoprolol Succinate (Metoprolol Succ 25mg Ext Rel Tab) 25 mg PO PM [facility] Stop: 06/13/21 20:59 Last Admin: 05/14/21 21:28 Dose: 25 mg Documented by: Miscellaneous (Carbohydrates For Hypoglycemia ) 15 - 30 gm PO UD PRN PRN Reason: Hypoglycemia Treatment Stop: 06/13/21 20:44 Miscellaneous Information (Pharmacy Glycemic Mgmt Consult) 1 ea N/A UD PRN PRN Reason: Consult Stop: 06/13/21 20:17 Naloxone HCl (Naloxone Hcl 0.4 Mg/1 Ml Vial/Carp) 0.1 mg IV Q5M PRN PRN Reason: Oversedation/Resp depression Stop: 06/13/21 17:53 Ondansetron HCl (Ondansetron Inj 2 Mg/Ml 2 Ml Vial) 4 mg IV Q6H PRN PRN Reason: Nausea &/or Vomiting Stop: 06/13/21 17:53 Ondansetron HCl (Ondansetron 4 Mg Od Tab) 4 mg PO Q6H PRN PRN Reason: Nausea Stop: 06/13/21 17:53 Oxycodone HCl (Oxycodone Hcl Ir 5 Mg Tab (Immediate Release)) 5 - 10 mg PO Q4H PRN PRN Reason: Pain & Pre PT Stop: 05/28/21 17:53 Pneumococcal Polyvalent Vaccine (Do Not Administer Pneumococcal Vaccine) 1 ea N/A PRN PRN PRN Reason: Notification Stop: 06/13/21 17:53 Polyethylene Glycol (Polyethylene (Miralax) 17 Gm Pack) 17 gm PO Q6 ANTHONY Stop: 06/14/21 05:59 Last Admin: 05/15/21 12:34 Dose: 17 gm Documented by: Senna/Docusate Sodium (Docusate Sodium/Senna 50/8.6mg Tab) 2 tab PO HS ANTHONY Stop: 06/13/21 20:59 Last Admin: 05/14/21 21:28 Dose: 2 tab Documented by: Sodium Biphosphate/Sodium Phosphate (Sod Phosphate/Sod Biphosphate Enema 132 Ml Btl) 132 ml LA ONE PRN PRN Reason: Constipation Stop: 06/13/21 17:53 Tamsulosin HCl (Tamsulosin Hcl 0.4 Mg Cap) 0.4 mg PO PM ANTHONY Stop: 06/13/21 20:59 Last Admin: 05/14/21 21:27 Dose: 0.4 mg Documented by: Tramadol HCl (Tramadol Hcl 50 Mg Tablet) 50 - 100 mg PO Q4H PRN PRN Reason: Moderate-Severe pain & Pre PT Stop: 06/13/21 17:53
[2021-05-15 14:23] LABS: Hematocrit (blood only) 24.6 % (42-52); Hemoglobin 8.4 g/dL (14.0-18.0); Mean Corpuscular Hemoglobin 33.2 pg (25-34); Mean Corpuscular Hgb Conc 34.1 g/dL (32-36); Mean Corpuscular Volume 97.2 fL (80-100); Mean Platelet Volume 10.3 fL (7.4-10.4); Platelet Count 149 K/uL (130-400); RDW Coefficient of Variation 14.1 % (11.5-14.5); RDW Standard Deviation 49.7 fL (36.4-46.3); Red Blood Count 2.53 M/uL (4.7-6.1); White Blood Count 12.52 K/uL (4.8-10.8)
[2021-05-15 15:08] LABS: BUN Creatinine Ratio 28.9 (10-20); Calcium 8.7 mg/dl (8.5-10.1); Creatinine Clr Calc Pharmacy 25.1 ml/min; Est GFR (African American) 34.4 ml/min; Est GFR (Non-African American) 29.7 ml/min; Potassium 4.7 mmol/L (3.5-5.1)
[2021-05-15] MEDS: SODIUM CHLORIDE 0.9% 500 ML IV SCH (16:26)
[2021-05-15] MEDS: FAMOTIDINE 20 MG TAB PO SCH (16:26)
[2021-05-15] MEDS: MELATONIN 3 MG TAB PO SCH (20:59)
[2021-05-15] MEDS: ATORVASTATIN 40 MG TAB PO SCH (21:00)
[2021-05-15] MEDS: TAMSULOSIN HCL 0.4 MG CAP PO SCH (21:00)
[2021-05-15] MEDS: DOCUSATE SODIUM/SENNA 50/8.6MG TAB PO SCH (21:01)
[2021-05-15] MEDS: METOPROLOL SUCC 25MG EXT REL TAB PO SCH (21:01)
[2021-05-16] MEDS: INSULIN ASPART PER UNIT SC SCH ×6 (00:01→20:40)
[2021-05-16] MEDS: POLYETHYLENE (MIRALAX) 17 GM PACK PO SCH ×5 (00:47→23:37)
[2021-05-16] MEDS: FAMOTIDINE 20 MG TAB PO SCH ×2 (03:29→13:32)
[2021-05-16] MEDS: SODIUM CHLORIDE 0.9% 500 ML IV SCH ×5 (05:31→22:31)
[2021-05-16] MEDS: LEVOTHYROXINE SODIUM 75 MCG TABLET PO SCH (05:57)
[2021-05-16 07:24] LABS: Hematocrit (blood only) 22.4 % (42-52); Hemoglobin 7.4 g/dL (14.0-18.0); Mean Corpuscular Hemoglobin 32.3 pg (25-34); Mean Corpuscular Volume 97.8 fL (80-100); Mean Platelet Volume 10.4 fL (7.4-10.4); Platelet Count 135 K/uL (130-400); RDW Coefficient of Variation 14.3 % (11.5-14.5); RDW Standard Deviation 50.9 fL (36.4-46.3); Red Blood Count 2.29 M/uL (4.7-6.1); White Blood Count 12.53 K/uL (4.8-10.8)
[2021-05-16 07:41] LABS: BUN Creatinine Ratio 32.9 (10-20); Calcium 8.7 mg/dl (8.5-10.1); Creatinine Clr Calc Pharmacy 29.6 ml/min; Est GFR (Non-African American) 36.2 ml/min; Potassium 4.9 mmol/L (3.5-5.1)
[2021-05-16] MEDS: FERROUS SULFATE 325 MG TAB PO SCH ×3 (08:08→20:51)
[2021-05-16] MEDS: ASPIRIN 81 MG ECTAB PO SCH (08:08)
[2021-05-16] MEDS: dexAMETHasone 6 MG in SYRINGE 0 ML IV SCH (08:09)
--- NOTE | 2021-05-16 08:13 | Ultrasound Report ---
ULTRASOUND KIDNEYS AND BLADDER CLINICAL HISTORY: Acute renal insufficiency. COMPARISON STUDY: No priors. TECHNIQUE: Real-time, grayscale, and color flow sonography of the kidneys and bladder is performed. I mages are reviewed in the transverse and longitudinal planes. FINDINGS: Kidneys: The kidneys there is a mild cortical atrophy. Echotexture is normal. The right kidney measur es 9.3 x 4.2 x 4.1 cm and the left kidney measures 9.7 x 5.2 x 4.6 cm. There is no hydronephrosis. N o shadowing renal calculi are identified. There is no sonographic evidence of contour deforming renal mass lesion. No perinephric fluid is identified. Bladder: The prostate gland is enlarged and heterogeneous. The bladder is distended. The wall appears thickened and trabeculated indicating chronic outlet obstruction. Ureteral jets were not seen. IMPRESSION: 1. The kidneys demonstrate mild cortical atrophy and are without hydronephrosis. 2. Prostatomegaly with a distended bladder and evidence of chronic bladder outlet obstruction. ACT 112: Negative or not required by law. Electronically signed by: Pablo Perez M.D. 05/16/2021 8:12 AM
[2021-05-16] MEDS: INSULIN GLARGINE SOLOSTAR 100 UNITS/ML 3 ML PEN SC SCH (08:55)
--- NOTE | 2021-05-16 10:20 | Pharmacy Report ---
Pharmacy Glycemic Short Note 2 - Date of Service May 16, 2021 - Glycemic Short BSG Results (Last 24 hours): 05/15/21 05/15/21 05/15/21 11:56 14:13 17:13 Glucose 204 H POC Glucose 214 H 236 H 05/15/21 05/16/21 05/16/21 20:45 00:03 03:29 Glucose POC Glucose 250 H 118 H 90 05/16/21 05/16/21 06:56 08:08 Glucose 93 POC Glucose 110 H OUTPATIENT ANTIDIABETIC REGIMEN: * Empagliflozin 10mg daily * Metformin: 500mg qAM, 250mg qPM * Lantus 30 units SQ qAM * HbA1c: 7.3% (05/15/21) ASSESSMENT: 05/16 * Fasting blood sugar at goal, continue basal dose * Blood sugars high throughout the day d/t steroids, tighten CR at this time 05/15 * Mr Albarado is an 80yo diabetic male, POD #1 s/p spinal surgery w/ Dr Melgar yesterday. * It appears as though pt received 12mg IV dexamethasone yesterday pre- operatively. This is expected to contribute to significant steroid-induced hyperglycemia. Pt is ordered DXM 6mg IV daily x3 days. * Patient has been hyperglycemic post-op. Suspect that this is due to steroids and also due to a basal insulin deficit. * Pt's SCr increased today (1.58 --> 2.0), so will cautiously attempt to correct hyperglycemia in the setting of changing insulin sensitivity. PLAN FOR INPATIENT GLYCEMIC CONTROL: * Hold outpatient oral diabetes medications * Basal insulin * Lantus 30 units SQ daily * Bolus insulin * NovoLog per scale ACHS or Q6hrs while NPO, plus 0000 and 0400 tonight * Goal Range: Low 110 mg/dL - High 140 mg/dL * Correction Factor: 25 mg/dL/unit * TIGHTEN: Nutritional / Prandial insulin per carb ratio of 1 unit per 5 grams CHO consumed
[2021-05-16] MEDS ORDERED: SODIUM CHLORIDE 0.9% 250 ML IV PRN (11:32)
--- NOTE | 2021-05-16 12:41 | Hospitalist Progress Note ---
Date of Service May 16, 2021 Assessment & Plan (1) Neurogenic claudication due to lumbar spinal stenosis: (2) Abnormal renal function: (3) CAD (coronary artery disease): (4) Diabetes mellitus, type 2: (5) Hypertension: (6) Ischemic cardiomyopathy: (7) Hypothyroidism: (8) DVT prophylaxis: Plan: Neurogenic Claudication -Management per Orthopedic service GEORGE on likely CKD -unknown CKD stage -Cr 1.5 on admission--> 2 yesterday and improved to 1.7 today after IVF -continue NSS at 75cc/hr -continue post void bladder scan -renal/bladder u/s shows just mild renal cortical thinning, chronic bladder outlet obstruction BPH with chronic urinary retention -continue flomax -I discussed with Urology and they recommend rojas catheter and follow up with them for void trial. Patient does not wish to have a rojas catheter. Will continue post void bladder scan for now Acute blood loss anemia -Hb 12--> 8.7--> 7.4 today -will give 1 unit packed RBC Ischemic Cardiomyopathy Chronic systolic CHF -EF 40%--> recovered to 55% on repeat TTE 05/07/2021 -Hypovolemic on exam HTN -continue to hold home HCTZ, lisinopril Hyperkalemia -in setting of hyperglycemia -now improved IDDM with steroid induced hyperglycemia -management per glycemic pharmacist DVT PPx -per primary, but recommend SCDs in setting of acute blood loss anemia. Above communicated to primary service Admission and Anticipated Discharge Date Admission Date: May 14, 2021 Subjective Feels well Denies light headedness/dizziness After removal of rojas yesterday, he had one episode requiring straight cath but after that "I've been urinating well" Physical Exam Physical Exam: sitting in chair, no acute distress ENMT: appears pale Respiratory: breathing comfortably on room air, no wheezing/rhonchi/rales Cardiovascular: regular rate and rhythm, no murmurs/rubs Gastrointestinal (Abdomen): soft, non tender Musculoskeletal: no edema Neurologic: awake, alert, hard of hearing Results & Data Results & Data ([facility]) Vital Signs (Past 12 Hours) Vital Signs Temp Pulse Resp BP Pulse Ox 05/16/21 07:45 36.3 C L 64 16 124/58 L 93 Laboratory Results Short CBC 05/15/21 05/16/21 Range/Units 14:13 06:56 WBC 12.52 H 12.53 H (4.8-10.8) K/uL Hgb 8.4 L 7.4 L (14.0-18.0) g/dL Hct 24.6 L 22.4 L (42-52) % Plt Count 149 135 (130-400) K/uL BMP 05/15/21 05/16/21 14:13 06:56 Sodium 133 L 138 Potassium 4.7 4.9 Chloride 100 107 Carbon Dioxide 24 26 BUN 59 H 57 H Creatinine 2.04 H 1.73 H D Glucose 204 H 93 Calcium 8.7 8.7 Medications Administered Current Inpatient Medications Acetaminophen (Acetaminophen 500 Mg Tab) 1,000 mg PO Q8H PRN PRN Reason: MILD Pain Scale 1,2,3 & Pre PT Stop: 06/13/21 17:53 Last Admin: 05/15/21 06:20 Dose: 1,000 mg Documented by: Al Hydrox/Mg Hydrox/Simethicone (Aluminum/Magnesium Susp 30 Ml Udc) 30 ml PO Q6H PRN PRN Reason: Dyspepsia Stop: 06/13/21 17:53 Last Admin: 05/15/21 06:20 Dose: 30 ml Documented by: Aspirin (Aspirin 81 Mg Ectab) 81 mg PO QAM ANTHONY Stop: 06/14/21 08:59 Last Admin: 05/16/21 08:08 Dose: 81 mg Documented by: Atorvastatin Calcium (Atorvastatin 40 Mg Tab) 40 mg PO PM ANTHONY Stop: 06/13/21 20:59 Last Admin: 05/15/21 21:00 Dose: 40 mg Documented by: Bisacodyl (Bisacodyl 10 Mg Supp) 10 mg CO DAILY PRN PRN Reason: Constipation Stop: 06/13/21 17:53 Dextrose (Dextrose 50% 50 Ml Syringe) 25 - 50 ml IV UD PRN; Protocol PRN Reason: Hypoglycemia Protocol Stop: 06/13/21 20:44 Diphenhydramine HCl (Diphenhydramine Capsule 25 Mg Cap) 25 mg PO Q6H PRN PRN Reason: Allergic Rhinitis/Insomnia Stop: 06/13/21 17:53 Famotidine (Famotidine 20 Mg Tab) 20 mg PO Q12H ANTHONY Stop: 06/14/21 15:44 Last Admin: 05/16/21 03:29 Dose: 20 mg Documented by: Ferrous Sulfate (Ferrous Sulfate 325 Mg Tab) 325 mg PO TID [facility] Stop: 06/13/21 20:59 Last Admin: 05/16/21 08:08 Dose: 325 mg Documented by: Glucagon (Glucagon For Inj 1 Mg Vial) 1 mg IM UD PRN; Protocol PRN Reason: Hypoglycemia Protocol Stop: 06/13/21 20:44 Glucose (Glucose 40% Gel 15 Gm Tube) 15 - 30 gm PO UD PRN; Protocol PRN Reason: Hypoglycemia Protocol Stop: 06/13/21 20:44 Glucose (Glucose 10 Tabs/Tube) 4 - 8 tabs PO UD PRN; Protocol PRN Reason: Hypoglycemia Protocol Stop: 06/13/21 20:44 Hydrochlorothiazide (Hydrochlorothiazide 25 Mg Tab) 25 mg PO PM [facility] Stop: 06/13/21 20:59 Hydromorphone HCl (Hydromorphone Inj 0.5 Mg/0.5 Ml Syr) 0.5 mg IV Q3H PRN PRN Reason: MODERATE Pain (Scale 4,5,6) & Pre PT Stop: 05/28/21 17:53 Hydromorphone HCl (Hydromorphone Inj 1 Mg/Ml Syringe) 1 mg IV Q3H PRN PRN Reason: SEVERE Pain (Scale 7,8,9,10) Stop: 05/28/21 17:53 Hydroxyzine HCl (Hydroxyzine Hcl 25 Mg Tab) 25 mg PO Q8H PRN PRN Reason: Anxiety Stop: 06/13/21 17:53 Promethazine HCl 12.5 mg/ (Sodium Chloride) 50.5 mls @ 202 mls/hr IV Q6H PRN PRN Reason: Nausea &/or Vomiting Stop: 06/13/21 17:53 Acetaminophen (Ofirmev) 1,000 mg in 100 mls @ 400 mls/hr IV Q8H PRN PRN Reason: Pain Rating 1-3 & Pre PT Stop: 05/17/21 17:53 Dexamethasone 6 mg/ Syringe 1.5 mls @ 1 mls/min IV DAILY [facility] Stop: 05/17/21 09:02 Last Admin: 05/16/21 08:09 Dose: 1 mls/min Documented by: Sodium Chloride (Nss) 500 mls @ 80 mls/hr IV .Q6H15M [facility] Stop: 06/14/21 15:14 Last Admin: 05/16/21 11:51 Dose: 80 mls/hr Documented by: Sodium Chloride (Nss) 250 mls @ 15 mls/hr IV .[id number] PRN PRN Reason: For Transfusion Stop: 05/16/21 21:33 Influenza Virus Vaccine Quadrival (Do Not Administer Flu Vaccine) 1 ea N/A PRN PRN PRN Reason: Notification Stop: 06/13/21 17:53 Insulin Aspart (Insulin Aspart Per Unit) 0 units SC [facility] Stop: 06/13/21 20:59 Last Admin: 05/16/21 08:55 Dose: 7 units Documented by: Insulin Glargine (Insulin Glargine Solostar 100 Units/Ml 3 Ml Pen) 30 units SC [facility] Stop: 06/14/21 08:59 Last Admin: 05/16/21 08:55 Dose: 30 units Documented by: Levothyroxine Sodium (Levothyroxine Sodium 75 Mcg Tablet) 75 mcg PO DAILYBB [facility] Stop: 06/14/21 06:29 Last Admin: 05/16/21 05:57 Dose: 75 mcg Documented by: Lisinopril (Lisinopril 40 Mg Tab) 40 mg PO QAM [facility] Stop: 06/14/21 08:59 Lorazepam (Lorazepam 0.5 Mg Tab) 0.5 mg PO Q8H PRN PRN Reason: Sedation/Anxiety Stop: 06/13/21 17:53 Lorazepam (Lorazepam 2 Mg/1 Ml Vial) 0.5 mg IV Q8H PRN PRN Reason: Sedation/Anxiety Stop: 06/13/21 17:53 Magnesium Hydroxide (Magnesium Hydroxide Susp 30 Ml Udc) 30 ml PO Q24H PRN PRN Reason: Constipation Stop: 06/13/21 17:53 Melatonin (Melatonin 3 Mg Tab) 4.5 mg PO PM [facility] Stop: 06/13/21 20:59 Last Admin: 05/15/21 20:59 Dose: 4.5 mg Documented by: Metoclopramide HCl (Metoclopramide Hcl Inj 5 Mg/Ml 2 Ml Vial) 10 mg IV Q6H PRN PRN Reason: Nausea &/or Vomiting Stop: 06/13/21 17:53 Metoprolol Succinate (Metoprolol Succ 25mg Ext Rel Tab) 25 mg PO PM [facility] Stop: 06/13/21 20:59 Last Admin: 05/15/21 21:01 Dose: 25 mg Documented by: Miscellaneous (Carbohydrates For Hypoglycemia ) 15 - 30 gm PO UD PRN PRN Reason: Hypoglycemia Treatment Stop: 06/13/21 20:44 Miscellaneous Information (Pharmacy Glycemic Mgmt Consult) 1 ea N/A UD PRN PRN Reason: Consult Stop: 06/13/21 20:17 Naloxone HCl (Naloxone Hcl 0.4 Mg/1 Ml Vial/Carp) 0.1 mg IV Q5M PRN PRN Reason: Oversedation/Resp depression Stop: 06/13/21 17:53 Ondansetron HCl (Ondansetron Inj 2 Mg/Ml 2 Ml Vial) 4 mg IV Q6H PRN PRN Reason: Nausea &/or Vomiting Stop: 06/13/21 17:53 Ondansetron HCl (Ondansetron 4 Mg Od Tab) 4 mg PO Q6H PRN PRN Reason: Nausea Stop: 06/13/21 17:53 Oxycodone HCl (Oxycodone Hcl Ir 5 Mg Tab (Immediate Release)) 5 - 10 mg PO Q4H PRN PRN Reason: Pain & Pre PT Stop: 05/28/21 17:53 Pneumococcal Polyvalent Vaccine (Do Not Administer Pneumococcal Vaccine) 1 ea N/A PRN PRN PRN Reason: Notification Stop: 06/13/21 17:53 Polyethylene Glycol (Polyethylene (Miralax) 17 Gm Pack) 17 gm PO Q6 ANTHONY Stop: 06/14/21 05:59 Last Admin: 05/16/21 05:34 Dose: 17 gm Documented by: Senna/Docusate Sodium (Docusate Sodium/Senna 50/8.6mg Tab) 2 tab PO HS ANTHONY Stop: 06/13/21 20:59 Last Admin: 05/15/21 21:01 Dose: 2 tab Documented by: Sodium Biphosphate/Sodium Phosphate (Sod Phosphate/Sod Biphosphate Enema 132 Ml Btl) 132 ml CO ONE PRN PRN Reason: Constipation Stop: 06/13/21 17:53 Tamsulosin HCl (Tamsulosin Hcl 0.4 Mg Cap) 0.4 mg PO PM ANTHONY Stop: 06/13/21 20:59 Last Admin: 05/15/21 21:00 Dose: 0.4 mg Documented by: Tramadol HCl (Tramadol Hcl 50 Mg Tablet) 50 - 100 mg PO Q4H PRN PRN Reason: Moderate-Severe pain & Pre PT Stop: 06/13/21 17:53
--- NOTE | 2021-05-16 14:53 | Orthopedic Progress Note ---
Date of Service May 16, 2021 Assessment & Plan (1) Neurogenic claudication due to lumbar spinal stenosis: Plan: At this time he is receiving 1 unit of blood. We will continue with therapy as tolerated. He is to wear his brace when ambulating the halls. Hopefully discharge home tomorrow. Admission and Anticipated Discharge Date Admission Date: May 14, 2021 Subjective Patient's back pain is controlled leg symptoms markedly improved. Physical Exam Physical Exam: On exam is good strength testing. Appears comfortable. Results & Data ([facility]) Vital Signs (Past 12 Hours) Vital Signs Temp Pulse Pulse Resp BP BP Pulse Ox 05/16/21 13:25 36.8 C 66 18 116/61 95 05/16/21 13:07 36.9 C 64 18 132/61 92 05/16/21 12:50 36.9 C 83 18 122/61 05/16/21 07:45 36.3 C L 64 16 124/58 L 93
--- NOTE | 2021-05-16 15:17 | Consultation Report ---
NEPHROLOGY CONSULTATION NOTE DATE OF SERVICE: 05/16/2021. REASON FOR CONSULTATION: Acute renal failure. The patient is an 80-year-old male who was admitted 2 days ago for spine surgery, specifically L3-S1 decompression and fusion for neurogenic claudication due to lumbar spinal stenosis. HISTORY OF PRESENT ILLNESS: The patient is an 80-year-old male who underwent lumbar spinal fusion on 05/14/2021 which is 2 days ago. Since the surgery, kidney function got worse. Creatinine was 1.5 o n the day of surgery and since then it went to 2.04, but it got better today and is down to 1.73. Hi s hemoglobin also dropped and he did get some blood transfusion. Preoperatively his hemoglobin was 12 .2, this morning, it was down to 7.4. His vital signs appear stable at this point, although there wa s some transient hypotension in the postoperative period. As per his medication, he is getting normal saline at this time as well as blood transfusion. His outpatient medications, which included lisino pril and hydrochlorothiazide is currently on hold. It does not appear he got any type of NSAIDs. We do not know his exact baseline kidney function, but he has been told by his PCP that he need to see a state archivist. In any case, his creatinine was 1.5 at the time of admission, so does not really hav e major CKD. He is making urine. He still complains of lot of pain in his back area. PAST MEDICAL AND SURGICAL HISTORY: Includes arthritis, BPH, CABG x2, type 2 diabetes, hyperlipidemia , hypertension, hypothyroidism, ischemic cardiomyopathy, neuropathy of feet, spinal stenosis, chronic kidney disease stage III, cataract surgery, tooth extraction, history of CABG, kyphoplasty, toe surg jevon. FAMILY HISTORY: Negative for renal disease or dialysis. MEDICATIONS: Home medication list was reviewed in detail and is as per the reconciliation list. He was on Jardiance, Lipitor, aspirin, iron tablet, hydrochlorothiazide, levothyroxine, lisinopril, norm zepam, melatonin, metformin, metoprolol, and tamsulosin. SOCIAL HISTORY: The patient never smoked. He lives alone. He feels safe at his home. Does not use oxygen. He does have to use a walker. REVIEW OF SYSTEMS: As detailed in HPI; unless stated otherwise, 12 systems reviewed and negative. A t this point, he is complaining of some pain, but otherwise unremarkable. Denies nausea, vomiting, c hest pain, shortness of breath, orthopnea, PND, lower extremity edema, or any acute symptoms. PHYSICAL EXAMINATION: GENERAL: Elderly white male who is not in any respiratory distress. He is awake, alert, oriented x3 and is able to give me a detailed account of his medical problem. VITAL SIGNS: Blood pressure is 116/61, pulse rate 66, temperature 36.8, 95% on room air. HEENT: Mucous membrane is moist. NECK: Supple. No jugular venous distention. CHEST: Bilaterally clear to auscultation. CARDIOVASCULAR: S1 and S2, regular. ABDOMEN: Soft, nontender. EXTREMITIES: Show no edema. SKIN: Shows no rashes. LABORATORY TEST: At the time of admission, creatinine was 1.5. Hemoglobin was 12.2. At this point, hemoglobin has dropped a lot and is down to 7.4. Creatinine went up to 2.04 yesterday, but is now t rending down and is now down to 1.73. This morning labs showed sodium 138, potassium 4.9, BUN 57, cr eatinine 1.7, calcium 8.7. Renal ultrasound was also done and shows mild cortical atrophy, otherwise some evidence of bladder outlet obstruction. ASSESSMENT AND PLAN: An 80-year-old male with diabetes, hypertension, coronary artery disease and po ssibly some mild chronic kidney disease III at baseline. He developed mild acute renal failure in th e postoperative setting mainly secondary to major hemodynamic change given significant drop in his he moglobin from 12 to 7. Such a big drop in hemoglobin, especially in an elderly susceptible patient w ith longstanding diabetes, hypertension, and heart disease is enough to cause acute renal failure. F ortunately, renal function is getting better and this morning lab is already much better and I expect the kidney function to get even better in the coming days and pretty much get back to his baseline. I agree with holding lisinopril and hydrochlorothiazide for the time being. I would give IV fluid u ntil the morning and after that I doubt he needs any IV fluid. Continue to support his hemoglobin an d keep his hemoglobin higher than 8. No further workup is needed for acute renal failure. Job ID: [id number]
[2021-05-16] MEDS: TAMSULOSIN HCL 0.4 MG CAP PO SCH (20:47)
[2021-05-16] MEDS: DOCUSATE SODIUM/SENNA 50/8.6MG TAB PO SCH (20:48)
[2021-05-16] MEDS: METOPROLOL SUCC 25MG EXT REL TAB PO SCH (20:49)
[2021-05-16] MEDS: ATORVASTATIN 40 MG TAB PO SCH (20:49)
[2021-05-16] MEDS: MELATONIN 3 MG TAB PO SCH (20:49)
[2021-05-17] MEDS: FAMOTIDINE 20 MG TAB PO SCH ×2 (03:38→15:13)
[2021-05-17] MEDS: SODIUM CHLORIDE 0.9% 500 ML IV SCH (06:08)
[2021-05-17] MEDS: LEVOTHYROXINE SODIUM 75 MCG TABLET PO SCH (06:12)
[2021-05-17] MEDS: POLYETHYLENE (MIRALAX) 17 GM PACK PO SCH ×2 (06:12→12:50)
[2021-05-17 07:28] LABS: Hematocrit (blood only) 25.2 % (42-52); Hemoglobin 8.5 g/dL (14.0-18.0); Mean Corpuscular Hemoglobin 32.6 pg (25-34); Mean Corpuscular Hgb Conc 33.7 g/dL (32-36); Mean Corpuscular Volume 96.6 fL (80-100); Mean Platelet Volume 10.7 fL (7.4-10.4); Platelet Count 129 K/uL (130-400); RDW Coefficient of Variation 15.5 % (11.5-14.5); RDW Standard Deviation 54.7 fL (36.4-46.3); Red Blood Count 2.61 M/uL (4.7-6.1); White Blood Count 12.91 K/uL (4.8-10.8)
[2021-05-17 07:47] LABS: BUN Creatinine Ratio 33.6 (10-20); Calcium 8.4 mg/dl (8.5-10.1); Creatinine Clr Calc Pharmacy 35.1 ml/min; Est GFR (African American) 51.5 ml/min; Est GFR (Non-African American) 44.5 ml/min; Potassium 4.4 mmol/L (3.5-5.1)
[2021-05-17] MEDS ORDERED: amLODIPine BESYLATE 5 MG TAB PO SCH (09:00)
[2021-05-17] MEDS: INSULIN ASPART PER UNIT SC SCH ×3 (09:06→16:43)
[2021-05-17] MEDS: FERROUS SULFATE 325 MG TAB PO SCH ×2 (09:09→15:13)
[2021-05-17] MEDS: ASPIRIN 81 MG ECTAB PO SCH (09:10)
[2021-05-17] MEDS: dexAMETHasone 6 MG in SYRINGE 0 ML IV SCH (09:11)
[2021-05-17] MEDS: INSULIN GLARGINE SOLOSTAR 100 UNITS/ML 3 ML PEN SC SCH (09:14)
--- NOTE | 2021-05-17 10:13 | Hospitalist Progress Note ---
Date of Service May 17, 2021 Assessment & Plan (1) Neurogenic claudication due to lumbar spinal stenosis: (2) Abnormal renal function: (3) CAD (coronary artery disease): (4) Diabetes mellitus, type 2: (5) Hypertension: (6) Ischemic cardiomyopathy: (7) Hypothyroidism: (8) DVT prophylaxis: Plan: Neurogenic Claudication -Management per Orthopedic service GEORGE on likely CKD -unknown CKD stage -Cr 1.5 on admission--> 2 --> 1.7 --> 1.4 -renal/bladder u/s shows just mild renal cortical thinning, chronic bladder outlet obstruction -Renal function back to baseline BPH with chronic urinary retention -continue flomax -Follow up with Urology -Successful void trial here, he is voiding with significant post void residual Acute blood loss anemia -Hb 12--> 8.7--> 7.4 s/p 1 unit pRBC--> 8.5 today Ischemic Cardiomyopathy Chronic systolic CHF -EF 40%--> recovered to 55% on repeat TTE 05/07/2021 -Euvolemic on exam HTN -continue to hold home HCTZ, lisinopril. Would continue to hold at discharge -start amlodipine 2.5mg daily for elevated BP. Would recommend he be discharged on this. Patient instructed to follow up with his PCP in 1 week for BP check and repeat BMP Hyperkalemia -in setting of hyperglycemia -resolved IDDM with steroid induced hyperglycemia -management per glycemic pharmacist -resume home regimen at discharge Patient is medically stable for discharge from medicine perspective. Final disposition per primary service Admission and Anticipated Discharge Date Admission Date: May 14, 2021 Subjective Feels well Received 1 unit pRBC yesterday with appropriate response BP elevated this morning No urinary retention Physical Exam Physical Exam: Sitting in chair, no acute distress, pleasant and comfortable Respiratory: Breathing comfortably on room air, no wheezing/rhonchi/rales Cardiovascular: regular rate and rhythm, no murmurs/rubs Gastrointestinal (Abdomen): soft, non tender Musculoskeletal: No edema Results & Data Results & Data ([facility]) Vital Signs (Past 12 Hours) Vital Signs Temp Pulse Resp BP Pulse Ox 05/17/21 07:40 36.6 C 51 L 16 158/67 H 92 Laboratory Results Short CBC 05/17/21 Range/Units 06:55 WBC 12.91 H (4.8-10.8) K/uL Hgb 8.5 L (14.0-18.0) g/dL Hct 25.2 L (42-52) % Plt Count 129 L (130-400) K/uL BMP 05/17/21 06:55 Sodium 138 Potassium 4.4 Chloride 110 H Carbon Dioxide 24 BUN 49 H Creatinine 1.46 H Glucose 97 Calcium 8.4 L Medications Administered Current Inpatient Medications Acetaminophen (Acetaminophen 500 Mg Tab) 1,000 mg PO Q8H PRN PRN Reason: MILD Pain Scale 1,2,3 & Pre PT Stop: 06/13/21 17:53 Last Admin: 05/15/21 06:20 Dose: 1,000 mg Documented by: Al Hydrox/Mg Hydrox/Simethicone (Aluminum/Magnesium Susp 30 Ml Udc) 30 ml PO Q6H PRN PRN Reason: Dyspepsia Stop: 06/13/21 17:53 Last Admin: 05/15/21 06:20 Dose: 30 ml Documented by: Amlodipine Besylate (Amlodipine Besylate 5 Mg Tab) 2.5 mg PO QAM ANTHONY Stop: 06/16/21 08:59 Last Admin: 05/17/21 09:10 Dose: 2.5 mg Documented by: Aspirin (Aspirin 81 Mg Ectab) 81 mg PO QAM [facility] Stop: 06/14/21 08:59 Last Admin: 05/17/21 09:10 Dose: 81 mg Documented by: Atorvastatin Calcium (Atorvastatin 40 Mg Tab) 40 mg PO PM ANTHONY Stop: 06/13/21 20:59 Last Admin: 05/16/21 20:49 Dose: 40 mg Documented by: Bisacodyl (Bisacodyl 10 Mg Supp) 10 mg NM DAILY PRN PRN Reason: Constipation Stop: 06/13/21 17:53 Dextrose (Dextrose 50% 50 Ml Syringe) 25 - 50 ml IV UD PRN; Protocol PRN Reason: Hypoglycemia Protocol Stop: 06/13/21 20:44 Diphenhydramine HCl (Diphenhydramine Capsule 25 Mg Cap) 25 mg PO Q6H PRN PRN Reason: Allergic Rhinitis/Insomnia Stop: 06/13/21 17:53 Famotidine (Famotidine 20 Mg Tab) 20 mg PO Q12H ANTHONY Stop: 06/14/21 15:44 Last Admin: 05/17/21 03:38 Dose: 20 mg Documented by: Ferrous Sulfate (Ferrous Sulfate 325 Mg Tab) 325 mg PO TID [facility] Stop: 06/13/21 20:59 Last Admin: 05/17/21 09:09 Dose: 325 mg Documented by: Glucagon (Glucagon For Inj 1 Mg Vial) 1 mg IM UD PRN; Protocol PRN Reason: Hypoglycemia Protocol Stop: 06/13/21 20:44 Glucose (Glucose 40% Gel 15 Gm Tube) 15 - 30 gm PO UD PRN; Protocol PRN Reason: Hypoglycemia Protocol Stop: 06/13/21 20:44 Glucose (Glucose 10 Tabs/Tube) 4 - 8 tabs PO UD PRN; Protocol PRN Reason: Hypoglycemia Protocol Stop: 06/13/21 20:44 Hydrochlorothiazide (Hydrochlorothiazide 25 Mg Tab) 25 mg PO PM [facility] Stop: 06/13/21 20:59 Hydromorphone HCl (Hydromorphone Inj 0.5 Mg/0.5 Ml Syr) 0.5 mg IV Q3H PRN PRN Reason: MODERATE Pain (Scale 4,5,6) & Pre PT Stop: 05/28/21 17:53 Hydromorphone HCl (Hydromorphone Inj 1 Mg/Ml Syringe) 1 mg IV Q3H PRN PRN Reason: SEVERE Pain (Scale 7,8,9,10) Stop: 05/28/21 17:53 Hydroxyzine HCl (Hydroxyzine Hcl 25 Mg Tab) 25 mg PO Q8H PRN PRN Reason: Anxiety Stop: 06/13/21 17:53 Promethazine HCl 12.5 mg/ (Sodium Chloride) 50.5 mls @ 202 mls/hr IV Q6H PRN PRN Reason: Nausea &/or Vomiting Stop: 06/13/21 17:53 Acetaminophen (Ofirmev) 1,000 mg in 100 mls @ 400 mls/hr IV Q8H PRN PRN Reason: Pain Rating 1-3 & Pre PT Stop: 05/17/21 17:53 Influenza Virus Vaccine Quadrival (Do Not Administer Flu Vaccine) 1 ea N/A PRN PRN PRN Reason: Notification Stop: 06/13/21 17:53 Insulin Aspart (Insulin Aspart Per Unit) 0 units SC ACHS [facility] Stop: 06/13/21 20:59 Last Admin: 05/17/21 09:06 Dose: 5 units Documented by: Insulin Glargine (Insulin Glargine Solostar 100 Units/Ml 3 Ml Pen) [facility] [place] Stop: 06/14/21 08:59 Last Admin: 05/17/21 09:14 Dose: 30 units Documented by: Levothyroxine Sodium (Levothyroxine Sodium 75 Mcg Tablet) 75 mcg PO DAILYBB [facility] Stop: 06/14/21 06:29 Last Admin: 05/17/21 06:12 Dose: 75 mcg Documented by: Lisinopril (Lisinopril 40 Mg Tab) 40 mg PO QAM [facility] Stop: 06/14/21 08:59 Lorazepam (Lorazepam 0.5 Mg Tab) 0.5 mg PO Q8H PRN PRN Reason: Sedation/Anxiety Stop: 06/13/21 17:53 Lorazepam (Lorazepam 2 Mg/1 Ml Vial) 0.5 mg IV Q8H PRN PRN Reason: Sedation/Anxiety Stop: 06/13/21 17:53 Magnesium Hydroxide (Magnesium Hydroxide Susp 30 Ml Udc) 30 ml PO Q24H PRN PRN Reason: Constipation Stop: 06/13/21 17:53 Melatonin (Melatonin 3 Mg Tab) 4.5 mg PO PM [facility] Stop: 06/13/21 20:59 Last Admin: 05/16/21 20:49 Dose: 4.5 mg Documented by: Metoclopramide HCl (Metoclopramide Hcl Inj 5 Mg/Ml 2 Ml Vial) 10 mg IV Q6H PRN PRN Reason: Nausea &/or Vomiting Stop: 06/13/21 17:53 Metoprolol Succinate (Metoprolol Succ 25mg Ext Rel Tab) 25 mg PO PM [facility] Stop: 06/13/21 20:59 Last Admin: 05/16/21 20:49 Dose: 25 mg Documented by: Miscellaneous (Carbohydrates For Hypoglycemia ) 15 - 30 gm PO UD PRN PRN Reason: Hypoglycemia Treatment Stop: 06/13/21 20:44 Miscellaneous Information (Pharmacy Glycemic Mgmt Consult) 1 ea N/A UD PRN PRN Reason: Consult Stop: 06/13/21 20:17 Naloxone HCl (Naloxone Hcl 0.4 Mg/1 Ml Vial/Carp) 0.1 mg IV Q5M PRN PRN Reason: Oversedation/Resp depression Stop: 06/13/21 17:53 Ondansetron HCl (Ondansetron Inj 2 Mg/Ml 2 Ml Vial) 4 mg IV Q6H PRN PRN Reason: Nausea &/or Vomiting Stop: 06/13/21 17:53 Ondansetron HCl (Ondansetron 4 Mg Od Tab) 4 mg PO Q6H PRN PRN Reason: Nausea Stop: 06/13/21 17:53 Oxycodone HCl (Oxycodone Hcl Ir 5 Mg Tab (Immediate Release)) 5 - 10 mg PO Q4H PRN PRN Reason: Pain & Pre PT Stop: 05/28/21 17:53 Last Admin: 05/16/21 20:46 Dose: 5 mg Documented by: Pneumococcal Polyvalent Vaccine (Do Not Administer Pneumococcal Vaccine) 1 ea N/A PRN PRN PRN Reason: Notification Stop: 06/13/21 17:53 Polyethylene Glycol (Polyethylene (Miralax) 17 Gm Pack) 17 gm PO Q6 ANTHONY Stop: 06/14/21 05:59 Last Admin: 05/17/21 06:12 Dose: 17 gm Documented by: Senna/Docusate Sodium (Docusate Sodium/Senna 50/8.6mg Tab) 2 tab PO HS ANTHONY Stop: 06/13/21 20:59 Last Admin: 05/16/21 20:48 Dose: 2 tab Documented by: Sodium Biphosphate/Sodium Phosphate (Sod Phosphate/Sod Biphosphate Enema 132 Ml Btl) 132 ml NM ONE PRN PRN Reason: Constipation Stop: 06/13/21 17:53 Tamsulosin HCl (Tamsulosin Hcl 0.4 Mg Cap) 0.4 mg PO PM ANTHONY Stop: 06/13/21 20:59 Last Admin: 05/16/21 20:47 Dose: 0.4 mg Documented by: Tramadol HCl (Tramadol Hcl 50 Mg Tablet) 50 - 100 mg PO Q4H PRN PRN Reason: Moderate-Severe pain & Pre PT Stop: 06/13/21 17:53
--- NOTE | 2021-05-17 13:28 | Discharge Summary ---
Date of Service May 17, 2021 Admission HPI Per Admitting Provider This is a 50-year-old male who presents with chronic persistent back and leg pain. Failing course of nonoperative care is here for surgical invention. Principal Diagnosis Lumbar spinal stenosis with neurogenic claudication Discharge Data Allergies Allergy/AdvReac Type Severity Reaction Status Date / Time Sulfa (Sulfonamide Allergy Intermediate Shakiness Verified 05/14/21 10:57 Antibiotics) Consultations 05/14/21 17:54 Consult Hospitalist Routine 05/15/21 15:11 Consult Nephrology Routine Procedures Performed Operation Date: 05/14/21 12:50 Actual Procedures p L3-S1 Decompression Fusion, Interbody L5-S1, Spinal Cord Monitoring(Not Applicable) - Beka Melgar DO Ordered Studies 05/14/21 12:50 FL lumbar spine 2-3V Routine 05/15/21 15:10 US renal/blad retro comp Routine Hospital Course (1) Neurogenic claudication due to lumbar spinal stenosis: Patient underwent lumbar decompression fusion tolerated so was taken to orthopedic floor postoperative. Postop day 1 he was up and ambulating progressive postop day #2 on postop day 1 3 pain was well controlled. ELISABET drain decreased probably. Strength testing. Subsequent discharge home. Discharge orders and instructions found the chart for further review. Total Time Total Time Spent Total Time Spent (In Minutes): 20 minutes Discharge Plan Discharge Items Patient Disposition: Home - Self-Care Reason For Visit: POSTOP Discharge Diagnosis: Lumbar spinal stenosis with neurogenic claudication Activity: As commented below Non-emergency contact: Primary Care Provider Call non-emergency contact if: you have any medication questions Follow-up/Referrals: Yarelis Peña DO [Primary Care Provider] - (The PCP's office is closed today. The patient will call on 05/20/21 to set up hospital f/u visit.) Diet: Regular Addtl Attending Provider Instructions: ACTIVITY RECOMMENDATIONS: SELF CARE INSTRUCTIONS AFTER THORACIC/LUMBAR FUSIONS 1. You may walk to your tolerance. It is good exercise for your legs and back. Expect some back and intermittent leg aches and pains. 2. You may perform "counter-top" level activities (make a sandwich, d[place] with a project, etc.). 3. No bending or lifting of more than 10 pounds or back twisting of any nature (roll like a log when turning in bed). 4. You may ride in a car for 20-30 minutes at a time. No driving until after your first visit with your doctor. 5. Frequent changes of position and restricting sitting to 30 minutes at a time will help limit the amount of back spasms and stiffness you may experience. 6. You may discontinue the use of ambulatory aids (cane, crutches, etc.) once your strength and confidence allow. 7. You may cloth examiner the shower and let water strike your incision when you arrive home at least once daily. Do not take a tub bath, sit in a hot tub or go into a swimming pool until after your first recheck in the office. SPECIAL CARE INSTRUCTIONS: VERY IMPORTANT TO READ AND REVIEW A. Your surgical incision has been closed with a cosmetic suture under the skin that will dissolve in about 6 weeks. In 14 days, you can use a pair of clean scissors and cut the suture that is left outside of the skin at the ends of your incision. 1. The small skin tapes can be removed 7 days after surgery if they have not fallen off by that point. 2. You may keep the wound open to air as much as possible to promote healing after post-op day number 5 unless told otherwise by your doctor. 3. If you think the wound looks like it is becoming infected (redness or worsening drainage) and/or you are experiencing fever, chill or worsening back pain and muscle spasms, contact the office so that we may evaluate you as soon as possible. B. Complications are uncommon, but please contact us if you have any signs or symptoms of: 1. wound infection (fever higher than 102.5 degrees F, redness, separation of wound, drainage, or increasing pain from the incision) 2. blood clots in legs (pain, swelling, redness and warmth in legs) 3. urinary tract infection (fever higher than 102.5 degrees F, burning upon urination or increased frequency of urination) 4. nerve problems (inability to walk on your toes or heels, numbness, loss of bowel or bladder control) 5. any other symptoms that concern you C. Please call the office at if you have any concerns or questions about your operation or recovery. D. No smoking! Smoking drastically decreases the chance of a solid fusion. E. Do not take any anti-inflammatory medications (Indocin, Advil, Motrin, Aspirin, Naprosyn, etc.) as these may inhibit the chance of a solid fusion. Tylenol is okay to take for pain. MANAGING PAIN AFTER SPINAL SURGERY 1. Narcotic medication is intended for short-term use and will be provided for surgical pain. Surgical pain usually lasts for a period of 4-6 weeks. Narcotic medication includes Percocet, Vicodin, Darvocet, Tylenol #3 or Lortab. 2. Longer-term pain is more appropriately treated with non-narcotic medication such as Tylenol ES. 3. Muscle spasm is not appropriately treated with narcotics. Muscle relaxers such as Soma, Flexeril or Skelaxin can be used along with Tylenol ES. 4. Remember that we all live with some "aches and pains". This is not unusual or uncommon after an injury or as we get older. a. Back pain is expected and may include muscle spasms for 4 to 6 weeks after surgery. The pain should gradually improve. If the pain worsens for no apparent reason, please contact the office. b. Intermittent leg pain may also be experienced and should not be concerned about unless it worsens for no apparent reason. If so, please contact the office. 5. We will provide appropriate medication within the normal guidelines of their prescribed use. We will also be very cautious and aware of potential abuse and extended duration of patients' medication needs. a. Pain medications are for your comfort and to assist with sleep and rest so that the tissue can heal. They are not provided in order to return to normal activity and should not be used through the day. To do so or worsening pain at night can result from ongoing tissue damage and development of tolerance to the prescribed medicine. 6. Please allow 2-3 days to process refills. Prescriptions will not be mailed but must be picked up at the office. FOLLOW UP VISIT: Keep your scheduled follow-up appointment. Any questions, please call the office at . Pending Studies at Discharge: No Stand-Alone Forms: My [employer]ner, Smoking Cessation Medications and DC Order Prescriptions: New oxycodone 5 mg tablet 5 mg PO Q6H PRN (Reason: pain, severe) Qty: 30 RF: 0 tramadol 50 mg tablet 50 mg PO Q6H PRN (Reason: pain, moderate) Qty: 30 RF: 0 amlodipine [Norvasc] 5 mg Tablet 2.5 mg PO QAM 30 Days Qty: 15 RF: 0 Continued atorvastatin [Lipitor] 40 mg Tablet 40 mg PO PM RF: 0 metformin 500 mg Tablet 500 mg PO QAM RF: 0 metformin 500 mg Tablet 250 mg PO PM RF: 0 aspirin 81 mg Tablet,Delayed Release (Dr/Ec) 81 mg PO QAM RF: 0 levothyroxine [Synthroid] 75 mcg Tablet 75 mcg PO QAM RF: 0 tamsulosin [Flomax] 0.4 mg Capsule 0.4 mg PO PM RF: 0 ferrous sulfate [iron] 325 mg (65 mg iron) Tablet 325 mg PO TID RF: 0 metoprolol succinate [Toprol XL] 25 mg Tablet Extended Release 24 Hr 25 mg PO PM RF: 0 lorazepam [Ativan] 1 mg Tablet 1 mg PO QAM RF: 0 Lantus Solostar U-100 Insulin 100 unit/mL (3 mL) Insulin Pen 30 unit SUBCUT QAM RF: 0 melatonin 5 mg Capsule 5 mg PO PM RF: 0 Jardiance 10 mg Tablet 10 mg PO QAM RF: 0 Discontinued hydrochlorothiazide 25 mg Tablet 25 mg PO PM RF: 0 lisinopril 40 mg Tablet 40 mg PO QAM RF: 0 Discharge Orders: Discharge Order (Routine); Ordered 05/17/21 Ordered By: Beka Guerra/Other Patient Handouts: Managing Type 2 Diabetes, Back Safety Bed, Back Safety: Bending, Back Safety: Lifting, Back Safety: Pushing and Pulling, Back Safety: Sleeping Positions, Back Safety: Turning Admission Data Admit Date/Time: 05/14/21 17:02 Attending Provider: Beka Melgar Admit Provider: Beka Melgar Primary Care Provider: Yarelis Peña. Other Providers: Beka Melgar ; Haroon William ; Jesús Richmond Other Interventions: Discharge Summary Assessment (RN) Last Done: 05/17/21 11:03
== END 2021-05-17 17:00 | disposition home or self-care (01) | DRG 454 ==
LOC: ASU 10:18 → 3E 17:02 → SUATTDRO 17:02